=== PATIENT | female | born 1945 | race Caucasian/White ===

== ENCOUNTER 2023-09-18 19:11 | Observation (INO) | payer MEDICARE, OTHER ==
[2023-09-18] MEDS ORDERED: Sodium Chloride 0.9% 10 ML Syringe FLUSH PRN (19:34)
[2023-09-18] MEDS ORDERED: Labetalol 100 MG/20 ML MDV IVPUSH ONE ×2 (19:35→22:23)
[2023-09-18] MEDS ORDERED: Meclizine 25 MG Tab PO ONE (19:36)
[2023-09-18 19:53] LABS: BASOPHILS PERCENT AUTO 0.3 % (0.0-1.0); EOSINOPHILS PERCENT AUTO 0.2 % (0.0-6.0); HEMATOCRIT 37.9 % (37.0-47.0); HEMOGLOBIN 13.1 gm/dl (12.0-16.0); IMMATURE GRAN ABSOLUTE AUTO 0.04 K/mm3 (0.00-0.05); IMMATURE GRAN PERCENT AUTO 0.4 % (0.0-0.4); LYMPHOCYTES PERCENT AUTO 10.9 % (24.0-44.0); MEAN CORPUSCULAR HEMOGLOBIN 30.1 pg (28.0-32.0); MEAN CORPUSCULAR HGB CONC 34.6 g/dl (32.0-36.0); MEAN CORPUSCULAR VOLUME 87.1 fl (83.0-99.0); MEAN PLATELET VOLUME 11.1 fl (9.4-12.3); MONOCYTES ABSOLUTE AUTO 0.7 K/mm3 (0.0-0.8); MONOCYTES PERCENT AUTO 7.1 % (0.0-8.0); NEUTROPHILS ABSOLUTE AUTO 7.7 K/mm3 (1.8-7.7); NEUTROPHILS PERCENT AUTO 81.1 % (41.0-71.0); PLATELET COUNT,PLT 190 K/mm3 (150-400); RED BLOOD CELL COUNT 4.35 M/mm3 (4.10-5.30); WHITE BLOOD CELL COUNT,WBC 9.52 K/mm3 (3.9-11.3)
[2023-09-18 20:19] LABS: A/G RATIO 1.2 (1-2); ALBUMIN 4.3 g/dl (3.4-5.0); ANION GAP 23.8 (5-15); BILIRUBIN TOTAL 0.5 mg/dL (0.2-1.0); BUN/CREATININE RATIO 25.2 (14-18); CALCIUM 10.2 mg/dL (8.5-10.1); CREATININE 3.3 mg/dL (0.55-1.02); EST CRCL DRUG DOSING (CG) 12.94 mL/min; POTASSIUM,K 4.8 mEq/L (3.5-5.1); PROTEIN TOTAL,TP 7.8 g/dl (6.4-8.2)
[2023-09-18] MEDS ORDERED: Enoxaparin 100 MG/1 ML Syringe SUBCUT ONE (23:29)
[2023-09-19] MEDS ORDERED: Metoprolol Tartrate 25 MG Tab PO ONE (00:43)
[2023-09-19] MEDS ORDERED: Scopolamine 1.5 MG Transdermal Patch TRDERM PRN (07:08)
[2023-09-19] MEDS ORDERED: Carboxymethylcellulose Sodium 1% Ophth Gel 15 ML Bottle EYEBOTH PRN (07:12)
[2023-09-19] MEDS ORDERED: TIRZEPATIDE 7.5 MG/0.5 ML SQ SCH (07:15)
[2023-09-19 08:50] LABS: BASOPHILS PERCENT AUTO 0.5 % (0.0-1.0); EOSINOPHILS PERCENT AUTO 0.2 % (0.0-6.0); HEMATOCRIT 35.6 % (37.0-47.0); HEMOGLOBIN 12.1 gm/dl (12.0-16.0); IMMATURE GRAN ABSOLUTE AUTO 0.02 K/mm3 (0.00-0.05); IMMATURE GRAN PERCENT AUTO 0.3 % (0.0-0.4); LYMPHOCYTES PERCENT AUTO 15.7 % (24.0-44.0); MEAN CORPUSCULAR HEMOGLOBIN 29.8 pg (28.0-32.0); MEAN CORPUSCULAR VOLUME 87.7 fl (83.0-99.0); MEAN PLATELET VOLUME 10.7 fl (9.4-12.3); MONOCYTES ABSOLUTE AUTO 0.8 K/mm3 (0.0-0.8); NEUTROPHILS ABSOLUTE AUTO 4.5 K/mm3 (1.8-7.7); NEUTROPHILS PERCENT AUTO 70.3 % (41.0-71.0); PLATELET COUNT,PLT 177 K/mm3 (150-400); RED BLOOD CELL COUNT 4.06 M/mm3 (4.10-5.30); WHITE BLOOD CELL COUNT,WBC 6.38 K/mm3 (3.9-11.3)
[2023-09-19] MEDS ORDERED: Chlorthalidone 25 MG Tab PO SCH ×2 (09:00→14:04)
[2023-09-19] MEDS ORDERED: Enoxaparin 80 MG/0.8 ML Syringe SUBCUT SCH ×2 (09:00→23:00)
[2023-09-19] MEDS ORDERED: Spironolactone 25 MG Tab PO SCH ×2 (09:00→14:03)
[2023-09-19] MEDS ORDERED: atorvaSTATin 20 MG Tab PO SCH ×2 (09:00→14:06)
[2023-09-19 09:05] LABS: A/G RATIO 1.1 (1-2); ALBUMIN 3.7 g/dl (3.4-5.0); ANION GAP 19.6 (5-15); BILIRUBIN TOTAL 0.4 mg/dL (0.2-1.0); BUN/CREATININE RATIO 23.3 (14-18); CALCIUM 9.8 mg/dL (8.5-10.1); CREATININE 3.6 mg/dL (0.55-1.02); EST CRCL DRUG DOSING (CG) 11.86 mL/min; POTASSIUM,K 4.6 mEq/L (3.5-5.1); PROTEIN TOTAL,TP 7.1 g/dl (6.4-8.2)
[2023-09-19] MEDS ORDERED: Lisinopril 20 MG Tab PO SCH ×2 (13:00→14:09)
[2023-09-19] MEDS ORDERED: Empagliflozin 25 MG Tab PO SCH ×2 (13:00→14:09)
[2023-09-19] MEDS: Multivitamins with Minerals/Folic Acid/Lutein/Zeaxanth Tab PO SCH (14:35)
[2023-09-19] MEDS: Cholecalciferol (Vitamin D3) 25 MCG Tab PO SCH (14:35)
[2023-09-19] MEDS: Folic Acid 1 MG Tab PO SCH (14:37)
[2023-09-19] MEDS: Sodium Bicarbonate 650 MG Tab PO SCH ×2 (14:37→22:01)
[2023-09-19] MEDS: Insulin Regular, Human 100 Units/ML 3 ML Vial SUBCUT SCH (19:37)
[2023-09-20 05:48] LABS: BASOPHILS PERCENT AUTO 0.4 % (0.0-1.0); EOSINOPHILS ABSOLUTE AUTO 0.1 K/mm3 (0.0-0.4); EOSINOPHILS PERCENT AUTO 1.5 % (0.0-6.0); HEMATOCRIT 33.3 % (37.0-47.0); HEMOGLOBIN 11.1 gm/dl (12.0-16.0); IMMATURE GRAN ABSOLUTE AUTO 0.02 K/mm3 (0.00-0.05); IMMATURE GRAN PERCENT AUTO 0.4 % (0.0-0.4); LYMPHOCYTES ABSOLUTE AUTO 1.5 K/mm3 (1.0-4.8); LYMPHOCYTES PERCENT AUTO 33.3 % (24.0-44.0); MEAN CORPUSCULAR HEMOGLOBIN 29.8 pg (28.0-32.0); MEAN CORPUSCULAR HGB CONC 33.3 g/dl (32.0-36.0); MEAN CORPUSCULAR VOLUME 89.3 fl (83.0-99.0); MEAN PLATELET VOLUME 11.6 fl (9.4-12.3); MONOCYTES ABSOLUTE AUTO 0.6 K/mm3 (0.0-0.8); MONOCYTES PERCENT AUTO 13.5 % (0.0-8.0); NEUTROPHILS ABSOLUTE AUTO 2.3 K/mm3 (1.8-7.7); NEUTROPHILS PERCENT AUTO 50.9 % (41.0-71.0); PLATELET COUNT,PLT 160 K/mm3 (150-400); RED BLOOD CELL COUNT 3.73 M/mm3 (4.10-5.30)
[2023-09-20 05:55] LABS: A/G RATIO 1.1 (1-2); ALBUMIN 3.3 g/dl (3.4-5.0); ANION GAP 19.3 (5-15); BILIRUBIN TOTAL 0.4 mg/dL (0.2-1.0); BUN/CREATININE RATIO 25.1 (14-18); CALCIUM 9.1 mg/dL (8.5-10.1); CREATININE 3.5 mg/dL (0.55-1.02); EST CRCL DRUG DOSING (CG) 12.2 mL/min; POTASSIUM,K 4.3 mEq/L (3.5-5.1); PROTEIN TOTAL,TP 6.4 g/dl (6.4-8.2)
[2023-09-20] MEDS ORDERED: Insulin Glargine,Human Rec. Analog 100 Units/ML 3 ML Pen SUBCUT SCH (09:00)
[2023-09-20] MEDS ORDERED: Calcitriol 0.25 MCG Cap PO SCH (09:00)
[2023-09-20] MEDS: Sodium Bicarbonate 650 MG Tab PO SCH (09:53)
[2023-09-20] MEDS: Folic Acid 1 MG Tab PO SCH (09:53)
[2023-09-20] MEDS: Cholecalciferol (Vitamin D3) 25 MCG Tab PO SCH (09:53)
[2023-09-20] MEDS: Multivitamins with Minerals/Folic Acid/Lutein/Zeaxanth Tab PO SCH (09:53)
[2023-09-20] MEDS: Insulin Regular, Human 100 Units/ML 3 ML Vial SUBCUT SCH ×2 (09:59→13:25)
== END 2023-09-20 13:45 | disposition home or self-care (01) ==
LOC: JD.ED 19:11 → JD.MS 23:53
PROVIDERS: ADMIT Internal Medicine; ATTEND Internal Medicine
DX: R06.01 Orthopnea (principal); I16.1 Hypertensive emergency; R20.8 Other disturbances of skin sensation; I12.9 Hypertensive chronic kidney disease with stage 1 through stage 4 chronic kidney disease, or unspecified chronic kidney disease; E11.22 Type 2 diabetes mellitus with diabetic chronic kidney disease; N18.4 Chronic kidney disease, stage 4 (severe); E78.00 Pure hypercholesterolemia, unspecified; R79.89 Other specified abnormal findings of blood chemistry; Z79.85 Long-term (current) use of injectable non-insulin antidiabetic drugs; Z79.4 Long term (current) use of insulin; Z79.899 Other long term (current) drug therapy; Z88.7 Allergy status to serum and vaccine
CPT/HCPCS: 36415; 70450; 71045; 78582; 80053; 82947; 84484; 85025; 85379; 93005; 96372; 96374; 96376; 99285; A9270; A9540; G0378; J1650; J1815; J3490; 93010; 99284

== ENCOUNTER 2024-08-04 23:28 | Inpatient (IN) | payer MEDICARE, OTHER ==
[2024-08-04] MEDS: Metoclopramide 10 MG/2 ML SDV IVPUSH ONE (23:51)
[2024-08-04] MEDS: Sodium Chloride 0.9% 10 ML Syringe FLUSH PRN (23:51)
[2024-08-04] MEDS: Furosemide 40 MG/4 ML VIAL IVPUSH ONE (23:51)
[2024-08-05 00:24] LABS: BASOPHILS ABSOLUTE AUTO 0.1 K/mm3 (0.0-0.2); BASOPHILS PERCENT AUTO 0.8 % (0.0-1.0); EOSINOPHILS ABSOLUTE AUTO 0.1 K/mm3 (0.0-0.4); EOSINOPHILS PERCENT AUTO 0.9 % (0.0-6.0); HEMATOCRIT 31.2 % (37.0-47.0); HEMOGLOBIN 9.6 gm/dl (12.0-16.0); IMMATURE GRAN PERCENT AUTO 0.7 % (0.0-0.4); LYMPHOCYTES ABSOLUTE AUTO 0.5 K/mm3 (1.0-4.8); LYMPHOCYTES PERCENT AUTO 3.8 % (24.0-44.0); MEAN CORPUSCULAR HEMOGLOBIN 28.4 pg (28.0-32.0); MEAN CORPUSCULAR HGB CONC 30.8 g/dl (32.0-36.0); MEAN CORPUSCULAR VOLUME 92.3 fl (83.0-99.0); MEAN PLATELET VOLUME 10.8 fl (9.4-12.3); MONOCYTES ABSOLUTE AUTO 0.4 K/mm3 (0.0-0.8); MONOCYTES PERCENT AUTO 3.1 % (0.0-8.0); NEUTROPHILS ABSOLUTE AUTO 12.4 K/mm3 (1.8-7.7); NEUTROPHILS PERCENT AUTO 90.7 % (41.0-71.0); PLATELET COUNT,PLT 303 K/mm3 (150-400); RED BLOOD CELL COUNT 3.38 M/mm3 (4.10-5.30); WHITE BLOOD CELL COUNT,WBC 13.71 K/mm3 (3.9-11.3)
[2024-08-05] MEDS: Nitroglycerin/D5W 25 MG/250 ML BOTTLE IV SCH (00:47)
[2024-08-05 00:55] LABS: A/G RATIO 0.6 (1-2); ALBUMIN 2.9 g/dl (3.4-5.0); ANION GAP 21.6 (5-15); BILIRUBIN TOTAL 0.5 mg/dL (0.2-1.0); BUN/CREATININE RATIO 18.2 (14-18); C-REACTIVE PROTEIN 9.81 mg/dL (<0.30); CALCIUM 9.8 mg/dL (8.5-10.1); CREATININE 3.4 mg/dL (0.55-1.02); EST CRCL DRUG DOSING (CG) 12.35 mL/min; POTASSIUM,K 5.6 mEq/L (3.5-5.1); PROTEIN TOTAL,TP 7.4 g/dl (6.4-8.2)
[2024-08-05 00:58] LABS: LACTIC ACID 2.6 mmol/L (0.4-2.0)
[2024-08-05 01:11] LABS: SLIDE REVIEW ABNORMAL SMEAR
[2024-08-05 01:14] LABS: HEMOGLOBIN A1C 6.3 %
[2024-08-05 03:41] LABS: APPEARANCE,URINE SLT CLOUDY (Clear); BILIRUBIN,URINE NEGATIVE (Negative); COLOR,URINE YELLOW (Yellow); GLUCOSE,URINE NEGATIVE (Negative); KETONES,URINE NEGATIVE (Negative); LEUKOCYTE ESTERASE,URINE 2+ (Negative); NITRITE,URINE NEGATIVE (Negative); OCCULT BLOOD,URINE 1+ (Negative); PROTEIN,URINE 2+ (Negative); UROBILINOGEN,URINE 0.2 (0.2-1.0)
[2024-08-05] MEDS: Linezolid 600 MG in Premix Bag 1 BAG IV ONE (04:18)
[2024-08-05] MEDS: Sodium Chloride 0.9% 1,000 ML IV SCH (04:18)
[2024-08-05 04:29] LABS: RBC,URINE 0-5 /hpf (0-5)
[2024-08-05 04:30] LABS: BACTERIA,URINE MODERATE /hpf (FEW); EPITHELIAL CELLS,URINE 0-5 /hpf (0-5); MUCUS,URINE NOT SEEN /hpf (FEW); WBC CLUMPS,URINE FEW /hpf (NOT SEEN)
[2024-08-05] MEDS: Furosemide 40 MG/4 ML VIAL IVPUSH ONE ×2 (05:40→15:50)
[2024-08-05] MEDS ORDERED: Acetaminophen 325 MG Tab PO PRN (08:52)
[2024-08-05] MEDS ORDERED: Ondansetron 4 MG/2 ML SDV IV PRN (08:52)
[2024-08-05] MEDS ORDERED: 50% Dextrose in Water 50 ML Syringe IVPUSH PRN (08:58)
[2024-08-05] MEDS ORDERED: Aspirin 81 MG Tab.EC PO SCH (09:00)
[2024-08-05 09:15] LABS: BASE EXCESS ARTERIAL -0.2 (-2-2.0); BICARBONATE,ARTERIAL 24.2 meq/L (22.0-26.0); O2 SATURATION ARTERIAL 99.8 % (96.0-97.0); PCO2 ARTERIAL 40.9 mmHg (35.0-45.0)
[2024-08-05] MEDS ORDERED: Cefepime 1 GM Vial IM SCH (09:15)
[2024-08-05 10:07] LABS: ANION GAP 19.3 (5-15); BUN/CREATININE RATIO 19.1 (14-18); CALCIUM 9.4 mg/dL (8.5-10.1); CREATININE 3.2 mg/dL (0.55-1.02); EST CRCL DRUG DOSING (CG) 13.13 mL/min; POTASSIUM,K 5.3 mEq/L (3.5-5.1)
[2024-08-05] MEDS: Insulin Lispro 100 Unit/ML 3 ML KwikPen SUBCUT SCH (11:29)
[2024-08-05] MEDS: Sodium Bicarbonate 650 MG Tab PO SCH (11:30)
[2024-08-05] MEDS: atorvaSTATin 20 MG Tab PO SCH (11:30)
[2024-08-05] MEDS: Cefepime 1 GM in Sodium Chloride 0.9% 50 ML IV SCH (11:30)
[2024-08-05] MEDS: Acetaminophen/HYDROcodone 325-5 MG Tab PO PRN ×2 (11:30→15:49)
[2024-08-05] MEDS: Clopidogrel 75 MG Tab PO SCH (11:31)
[2024-08-05] MEDS: Aspirin 81 MG Tab.EC PO SCH (12:11)
[2024-08-05] MEDS ORDERED: Sennosides/Docusate Sodium 50-8.6 MG Tab PO PRN (16:37)
[2024-08-05] MEDS: Heparin Sodium 5,000 Units/ML Vial SUBCUT SCH (16:50)
[2024-08-06] MEDS ORDERED: Metoprolol Succinate 25 MG Tab.ER PO SCH (09:00)
== END 2024-08-05 19:00 | DRG 280 ==
LOC: JD.ED 23:28 → JD.MS 08-05 08:52 → JD.ICU 08-05 09:58
PROVIDERS: ADMIT Family Medicine; ATTEND Family Medicine
DX: J81.0 Acute pulmonary edema (principal); I13.2 Hypertensive heart and chronic kidney disease with heart failure and with stage 5 chronic kidney disease, or end stage renal disease; J96.01 Acute respiratory failure with hypoxia; I21.A1 Myocardial infarction type 2; N39.0 Urinary tract infection, site not specified; N18.5 Chronic kidney disease, stage 5; E10.22 Type 1 diabetes mellitus with diabetic chronic kidney disease; N17.9 Acute kidney failure, unspecified; I50.32 Chronic diastolic (congestive) heart failure; I25.118 Atherosclerotic heart disease of native coronary artery with other forms of angina pectoris; I25.2 Old myocardial infarction; L97.519 Non-pressure chronic ulcer of other part of right foot with unspecified severity; E78.00 Pure hypercholesterolemia, unspecified; E11.51 Type 2 diabetes mellitus with diabetic peripheral angiopathy without gangrene; E11.22 Type 2 diabetes mellitus with diabetic chronic kidney disease; I34.0 Nonrheumatic mitral (valve) insufficiency; I95.9 Hypotension, unspecified; Z99.2 Dependence on renal dialysis; Z79.4 Long term (current) use of insulin; Z95.5 Presence of coronary angioplasty implant and graft; Z88.7 Allergy status to serum and vaccine; Z79.02 Long term (current) use of antithrombotics/antiplatelets; Z79.82 Long term (current) use of aspirin; Z79.899 Other long term (current) drug therapy
CPT/HCPCS: 36415; 71045; 80053; 81001; 83036; 83605 ×2; 83735; 83880; 84484; 85025; 86140; 87040; 87086; 87641; 93005; J1940 ×2; J2020; J2305; J2765; J3490; J7030; 36600; 51702; 73700-26-RT; 73700-RT; 80048; 82803; 82947; 87088; 87186; 93306; 94761; 96365; 96366; 96368; 96375; 99285-25; A9270-GY; J0692; J1644

== ENCOUNTER 2025-03-24 22:24 | Emergency (ER) | payer MEDICARE, OTHER | END 2025-03-25 02:00 | disposition home or self-care (01) | LOC: JD.ED 22:24 | DX: Z49.01 Encounter for fitting and adjustment of extracorporeal dialysis catheter (principal); I13.0 Hypertensive heart and chronic kidney disease with heart failure and stage 1 through stage 4 chronic kidney disease, or unspecified chronic kidney disease; I50.9 Heart failure, unspecified; N18.4 Chronic kidney disease, stage 4 (severe); E78.00 Pure hypercholesterolemia, unspecified; E11.22 Type 2 diabetes mellitus with diabetic chronic kidney disease; Z95.5 Presence of coronary angioplasty implant and graft; Z88.7 Allergy status to serum and vaccine; Z79.899 Other long term (current) drug therapy; Z79.82 Long term (current) use of aspirin; Z79.4 Long term (current) use of insulin | CPT/HCPCS: 99283 ==